=== PATIENT | female | born 1985 | race African-American/Black ===

== ENCOUNTER 2016-10-19 15:54 | Emergency (ER) | payer OTHER ==
--- NOTE | ~2016-10-19 | US60 ---
[facility] A Service of [facility] & [facility] RADIOLOGY TEXT RESULTS PATIENT: JOAN WINCHESTER LOCATION: CFT[facility] : 87 UNIT #: [id number] AGE: [address]: Rhonda Carney SEX: F ORDER DR: [id number] [facility] [address] [place], [place] [address] [id number] MR#: [id number] Acc #: [id number] NAME: JOAN WINCHESTER : 1985 SEX: F STUDY DATE/TIME: 10/19/2016 17:14 UNIT: CFMO ROOM: STUDY DESCRIPTION: US /Mat <14Wk Ea Add Gest Attending Physician: Rhonda Carney P.A.-C. Ordering Physician: Rhonda Carney P.A.-C. Primary Care Physician[facility] REPORT This report is preliminary unless electronic signature is present EXAM Transvaginal pelvic ultrasound, 10/19/2016 HISTORY 31-year-old female with pelvic pain beginning today. History of two prior stillborn births. COMPARISON None. FINDINGS Transvaginal scanning of the pelvis demonstrates a single living intrauterine gestation estimated at 6 weeks 5 days by crown-rump length. cardiac motion identified at 131 beats per minute. No evidence of subchorionic hemorrhage. Uterus is otherwise unremarkable. A few small nabothian cysts incidentally noted in the cervix. Right ovary is normal and measures 3.6 cm x 2.3 cm x 4.2 cm. Normal vascular flow in the right ovary. Left ovary is normal and measures 2.8 cm x 2.2 cm x 3 cm. Normal vascular flow. Left ovary. No significant free pelvic fluid. IMPRESSION 1. Single living intrauterine gestation estimated at 6 weeks 5 days by crown-rump length. cardiac motion identified at 135 beats per minute. 2. Both ovaries are within normal limits. Dictated by... Miguel Dyson M.D. THIS IS AN ELECTRONICALLY VERIFIED REPORT Miguel Dyson M.D. at 10/23/2016 7:38 AM [facility] A Service of [facility] & [facility] RADIOLOGY TEXT RESULTS PATIENT: JOAN WINCHESTER LOCATION: [facility] : [birth year] UNIT #: [id number] AGE: [address]: Rhonda Carney SEX: F ORDER DR: Kari TD: 10/20/2016 00:59 JOB #: [id number] MEDICAL IMAGING REPORT Page 1 of 1 COPY
[~2016-10-19 15:54] MED LIST: BACTRIM DS TABL1 TA1 PO; CIPRO PO; FLAGYL PO; NORCO 5/325 TAB1 TAB PO; PHENERGAN25 MG PO; VOLTAREN50 MG PO; ZOFRAN ODT4 MG PO; ZOFRAN PO
[2016-10-19 16:58] LABS: URINE SOURCE CLEAN CATCH
[2016-10-19 17:05] LABS: URINE APPEARANCE CLOUDY; URINE BILIRUBIN NEG (NEG); URINE BLOOD NEG (NEG); URINE COLOR YELLOW; URINE GLUCOSE NEG (NEG); URINE KETONE NEG (NEG); URINE LEUKOCYTE ESTERASE 3+ (NEG); URINE NITRATE NEG (NEG); URINE PROTEIN NEG (NEG); URINE SPECIFIC GRAVITY 1.013 (1.003-1.035); URINE UROBILINOGEN 0.2 MG/DL (NEG)
[2016-10-19 17:08] LABS: CULTURE INDICATED? YES; U HYALINE CASTS AUWI 0-2 /[LPF]; URBCS1 AUWI 0-2 /[HPF] (0-2); URINE BACTERIA AUWI 3+ (NEGATIVE); URINE SQUAMOUS EPITHELIAL CELL MANY /[HPF]; UWBCS1 AUWI 50-100 (0-5)
[2016-10-23 23:43] LABS: CHLAMYDIA TRACH Not Detected (Not Detected); N GONOR Not Detected (Not Detected)
== END 2016-10-19 18:25 | disposition home or self-care (01) ==
LOC: CED 15:54 → CFTX 15:54
PROVIDERS: Physician Assistant
DX: O23.599 Infection of other part of genital tract in pregnancy, unspecified trimester (principal); N76.0 Acute vaginitis
CPT/HCPCS: 36415; 76802; 76817; 81003; 84702; 87086; 87491; 87591; 87808; 87905; 99284